=== PATIENT | female | born 1965 | race Caucasian/White ===

== ENCOUNTER 2017-05-04 12:49 | Emergency (ER) | payer BC ==
[~2017-05-04] VITALS: Ht 167.6 cm; Wt 59.0 kg
[2017-05-04 12:54] VITALS: BP_SYST 161
[2017-05-04] MEDS ORDERED: IPRATROPIUM/ALBUTEROL SULFATE 3 ML AMPUL.NEB INH ONE ×2 (13:00→13:30)
[2017-05-04] MEDS ORDERED: DEXAMETHASONE SOD PHOSPHATE 10 MG/ML VIAL IVP ONE (13:30)
[2017-05-04] MEDS ORDERED: NACL 0.9% 1,000 ML IV ONE (13:30)
[2017-05-04 16:59] VITALS: BP_SYST 127
== END 2017-05-04 16:59 | disposition home or self-care (01) ==
LOC: SED 12:49
DX: J45.901 Unspecified asthma with (acute) exacerbation (principal); Z91.14 Patient's other noncompliance with medication regimen
CPT/HCPCS: 71010; 81025; 94640; 96361; 96374; 99284; J1100; J7030